=== PATIENT | male | born 1975 | race American Indian/Alaskan Native ===

== ENCOUNTER 2022-04-24 19:05 | Emergency (ER) | payer OTHER ==
[2022-04-24 21:46] LABS: Bilirubin,Urine NEG (Negative); Blood,Urine MOD (Negative); Color,Urine Yellow (Yellow); Mucus,Urine FEW /HPF; RBC,Urine < 1.0 /HPF (0.0-6.0); Urobilinogen,Urine < 2.0 mg/dL (<2.0); WBC,Urine < 1.0 /HPF (0.0-6.0)
[2022-04-24 21:49] LABS: Alanine Aminotransferase 20 units/L (7-56); Albumin 4.9 g/dL (3.9-5); BUN/Creatinine Ratio 12; Blood Urea Nitrogen 11 mg/dL (9-20); Calcium 9.8 mg/dL (8.4-10.2); Eosinophils # (Auto) 0.2 K/mm3 (0.0-0.4); Eosinophils % (Auto) 1.6 % (0.0-4.3); Hematocrit 34.2 % (35.5-45.6); Hemoglobin 11.9 gm/dl (11.8-15.2); Hemolysis Index 7; Lymphocytes # (Auto) 1.8 K/mm3 (1.2-5.4); Mean Corpuscular HGB Conc 35 % (32-34); Mean Corpuscular Volume 93 fl (84-94); Monocytes # (Auto) 0.6 K/mm3 (0.0-0.8); Monocytes % (Auto) 5.9 % (0.0-7.3); Platelet Count 235 K/mm3 (140-440); Red Blood Count 3.66 M/mm3 (3.65-5.03); Red Cell Distribution Width 12.2 % (13.2-15.2)
[2022-04-24 22:01] VITALS: BP 127/85
[2022-04-25] MEDS ORDERED: KETOROLAC 30 MG/1 ML INJ IM ONE (00:18)
[2022-04-25] MEDS ORDERED: oxyCODONE /ACETAMINOPHEN 5-325MG TAB PO ONE (00:18)
[2022-04-25] MEDS ORDERED: ONDANSETRON 4 MG ODT TAB PO ONE (00:18)
--- NOTE | 2022-04-25 01:47 | Emergency Department Report ---
ED Abdominal Pain HPI - General Chief Complaint: Abdominal Pain Stated Complaint: PAIN RT SIDE Source: patient Mode of arrival: Ambulatory Limitations: No Limitations - History of Present Illness Initial Comments: Patient is a 46-year-old male with a history of recurrent kidney stones who presents to the ED with complaint of acute onset persistent right flank pain that radiates to the right lower quadrant area with nausea and vomiting for the last 8 hours. Patient states that the pain has worsened especially in the last 6 hours. Patient believes that he may be having another bout of kidney stone flareup. Patient denies hematuria, dysuria, urinary frequency and urgency, urinary retention, chest pain or shortness of breath, traumatic injury or heavy lifting, diarrhea, testicular pain, fever and chills. MD Complaint: abdominal pain, flank pain (right), other (Nausea and vomiting) -: Sudden, hour(s) (8) Location: R flank Migration to: no migration Severity: severe Severity scale (0 -10): 8 Quality: aching, sharp Consistency: constant Improves With: nothing Context: other (History of kidney stones) Associated Symptoms: denies other symptoms, nausea, vomiting. denies: diarrhea, fever, chills, dysuria, hematemesis, hematochezia, melena, anorexia, syncope - Related Data Previous Rx's Medication Instructions Recorded Last Taken Type Ketorolac [Toradol] 10 mg PO Q8H PRN #20 tab 04/25/22 Unknown Rx Ondansetron [Zofran Odt] 4 mg PO Q6HR PRN #20 tab.rapdis 04/25/22 Unknown Rx Tamsulosin [Flomax] 0.4 mg PO QDAY #15 cap 04/25/22 Unknown Rx oxyCODONE /ACETAMINOPHEN [Percocet 1 tab PO Q6HR PRN #12 tablet 04/25/22 Unknown Rx 5/325] Allergies Allergy/AdvReac Type Severity Reaction Status Date / Time No Known Allergies Allergy Verified 04/24/22 21:06 ED Review of Systems ROS: Stated complaint: PAIN RT SIDE Other details as noted in HPI Constitutional: denies: chills, fever Eyes: denies: eye pain, eye discharge, vision change ENT: denies: ear pain, throat pain Respiratory: denies: cough, shortness of breath, wheezing Cardiovascular: denies: chest pain, palpitations Endocrine: no symptoms reported Gastrointestinal: abdominal pain (Right flank pain), nausea, vomiting. denies: diarrhea Genitourinary: denies: urgency, dysuria Musculoskeletal: denies: back pain, joint swelling, arthralgia Skin: denies: rash, lesions Neurological: denies: headache, weakness, paresthesias Psychiatric: denies: anxiety, depression Hematological/Lymphatic: denies: easy bleeding, easy bruising ED Past Medical Hx - Past Medical History Previous Medical History?: No Hx Renal Disease: Yes (Kidney stones) - Surgical History Past Surgical History?: Yes Additional Surgical History: umbilical hernia repair - Social History Smoking Status: Never Smoker Substance Use Type: Alcohol - Medications Home Medications: Home Medications Medication Instructions Recorded Confirmed Last Taken Type Ketorolac [Toradol] 10 mg PO Q8H PRN #20 tab 04/25/22 Unknown Rx Ondansetron [Zofran Odt] 4 mg PO Q6HR PRN #20 tab.rapdis 04/25/22 Unknown Rx Tamsulosin [Flomax] 0.4 mg PO QDAY #15 cap 04/25/22 Unknown Rx oxyCODONE /ACETAMINOPHEN [Percocet 1 tab PO Q6HR PRN #12 tablet 04/25/22 Unknown Rx 5/325] ED Physical Exam - General Limitations: No Limitations General appearance: alert, in no apparent distress - Head Head exam: Present: atraumatic, normocephalic, normal inspection - Eye Eye exam: Present: normal appearance, PERRL, EOMI Pupils: Present: normal accommodation - ENT ENT exam: Present: normal exam, normal orophraynx, mucous membranes moist, TM's normal bilaterally, normal external ear exam - Neck Neck exam: Present: normal inspection, full ROM. Absent: tenderness - Respiratory Respiratory exam: Present: normal lung sounds bilaterally. Absent: respiratory distress, wheezes, rales, rhonchi, chest wall tenderness, accessory muscle use, decreased breath sounds, prolonged expiratory - Cardiovascular Cardiovascular Exam: Present: regular rate, normal rhythm, normal heart sounds. Absent: systolic murmur, diastolic murmur, rubs, gallop - GI/Abdominal GI/Abdominal exam: Present: soft, tenderness (Palpable right flank tenderness), normal bowel sounds. Absent: guarding, rebound, rigid, hyperactive bowel sounds, hypoactive bowel sounds, organomegaly, mass - Extremities Exam Extremities exam: Present: normal inspection, full ROM, normal capillary refill. Absent: tenderness - Back Exam Back exam: Present: normal inspection, full ROM. Absent: tenderness, CVA tenderness (R), CVA tenderness (L), muscle spasm, paraspinal tenderness, vertebral tenderness - Neurological Exam Neurological exam: Present: alert, oriented X3, CN II-XII intact, normal gait, reflexes normal - Psychiatric Psychiatric exam: Present: normal affect, normal mood - Skin Skin exam: Present: warm, dry, intact, normal color. Absent: rash ED Course Vital Signs 04/24/22 04/24/22 20:52 21:59 Temperature 98.0 F 98.1 F Pulse Rate 84 77 Respiratory 18 20 Rate Blood Pressure 137/81 Blood Pressure 127/85 [Right] O2 Sat by Pulse 97 99 Oximetry ED Medical Decision Making - Lab Data Result diagrams: 04/24/22 21:11 04/24/22 21:11 - Radiology Data Radiology results: report reviewed, image reviewed [facility] [address] [place] [address] Cat Scan Report Signed Patient: STACEY CARMONA MR#: [id number] 9 : 1975 Acct:[id number] Age/Sex: 46 / M ADM Date: 04/24/22 Loc: ED Attending Dr: Ordering Physician: GAEL GARG Date of Service: 04/25/22 Procedure(s): CT abdomen pelvis wo con Accession Number(s): [id number] cc: GAEL GARG CT ABDOMEN AND PELVIS WITHOUT CONTRAST INDICATION: Right flank pain - kidney stone CONTRAST: Without IV COMPARISON: None available. All CT scans at this location are performed using CT dose reduction for ALARA by means of automated exposure control. FINDINGS: Lung bases clear. No pneumoperitoneum. No abdominal masses. No lymphadenopathy. No free fluid. Mild colonic diverticulosis without obvious diverticulitis. Appendix normal. No bowel obstruction. No inflammatory changes. Gallbladder mildly contracted without obvious calculi. Questionable borderline wall thickening seen. No biliary dilatation. No renal calculi. In the mid right ureter just below the iliac crest, a 3 mm calculus is seen without obvious obstruction. No other ureteral abnormalities seen. Urinary bladder appears normal. Prostate and seminal vesicles within normal limits. Small fatty right inguinal hernia without acute change. IMPRESSION: Small right midureteral calculus without significant obstruction Signer Name: Gaurav Davis MD Signed: 04/25/2022 2:22 AM Workstation Name: [id number] Transcribed By: ELIOT Dictated By: Gaurav Davis MD Electronically Authenticated By: Gaurav Davis MD Signed Date/Time: 04/25/22221 DD/ 8 TD/TT: - Medical Decision Making This is a 46-year-old male with a history of recurrent kidney stones who presents to the ED with complaint of acute onset persistent right flank pain that radiates to the right lower quadrant area with nausea and vomiting for the last 8 hours. Patient states that the pain has worsened especially in the last 6 hours. Patient believes that he may be having another bout of kidney stone flareup. In the ED, patient is alert and oriented x3 and is not in distress. Patient however appears to be in pain. Patient is hemodynamically stable. Lab test results were reviewed and are all nonactionable. Patient was treated for pain in the ED. Patient was also treated for nausea and vomiting. Abdomen pelvis CT scan without contrast showed small right midureteral 3 mm calculus without significant obstruction. On reevaluation, patient's pain is well controlled medication. Patient will discharge home on pain medications and a ntiemetics as well as Flomax and was advised to follow-up with his urologist or urologist Dr. Munguia for further evaluation in 3 to 5 days. Patient was advised to contact his office first thing the morning on , April 25, 2022 to schedule a follow-up appointment. Patient was advised return to the ED immediately if symptoms get worse. - Differential Diagnosis Kidney stone; UTI; appendicitis; cystitis; Critical care attestation.: If time is entered above; I have spent that time in minutes in the direct care of this critically ill patient, excluding procedure time. ED Disposition Clinical Impression: Acute abdominal pain in right flank, Nausea and vomiting in adult patient, Calculus of right kidney Disposition: HOME / SELF CARE / HOMELESS Is pt being admited?: No Does the pt Need Aspirin: No Condition: Stable Instructions: Nausea and Vomiting, Adult, [id number], Abdominal Pain, Adult, [id number], Flank Pain, Adult, [id number], Kidney Stones, [id number] Additional Instructions: All lab test results were reviewed and are all nonactionable. Abdomen pelvis CT scan without contrast showed a 3 mm stone in the distal right ureter without obstruction. Therefore your symptoms are likely due to the kidney stone. Take medications with food, drink plenty of fluids, follow-up with the urologist Dr. Munguia also as advised. Contact his office first thing in the morning on , April 25, 2022 to schedule a follow-up appointment. Return to the ED immediately if symptoms get worse. Prescriptions: Tamsulosin [Flomax] 0.4 mg PO QDAY #15 cap oxyCODONE /ACETAMINOPHEN [Percocet 5/325] 1 tab PO Q6HR PRN #12 tablet PRN Reason: Pain Ketorolac [Toradol] 10 mg PO Q8H PRN #20 tab PRN Reason: Pain Ondansetron [Zofran Odt] 4 mg PO Q6HR PRN #20 tab.rapdis PRN Reason: Nausea Referrals: [facility] [Provider Group] - 7-10 days RANDA MUNGUIA MD [Staff Physician] - 3-5 Days Forms: Work/School Release Form(ED) Time of Disposition: 01:47 Print Language: BULGARIAN
--- NOTE | 2022-04-25 02:27 | Cat Scan Report ---
CT ABDOMEN AND PELVIS WITHOUT CONTRAST INDICATION: Right flank pain - kidney stone CONTRAST: Without IV COMPARISON: None available. All CT scans at this location are performed using CT dose reduction for ALARA by means of automated e xposure control. FINDINGS: Lung bases clear. No pneumoperitoneum. No abdominal masses. No lymphadenopathy. No free flu id. Mild colonic diverticulosis without obvious diverticulitis. Appendix normal. No bowel obstruction . No inflammatory changes. Gallbladder mildly contracted without obvious calculi. Questionable border line wall thickening seen. No biliary dilatation. No renal calculi. In the mid right ureter just below the iliac crest, a 3 mm calculus is seen without obvious obstruction. No other ureteral abnormalities seen. Urinary bladder appears normal. Prostate and seminal vesicles within normal limits. Small fatty right inguinal hernia without acute change. IMPRESSION: Small right midureteral calculus without significant obstruction Signer Name: Gaurav Davis MD Signed: 04/25/2022 2:22 AM Workstation Name: [id number]
== END 2022-04-25 04:15 | disposition home or self-care (01) ==
LOC: ED 19:05
DX: N20.0 Calculus of kidney (principal); Z72.89 Other problems related to lifestyle; Z79.899 Other long term (current) drug therapy
CPT/HCPCS: 36415; 74176; 80053; 81001; 85025; 96372; 99284; J1885; J3490; Q0162